=== PATIENT | male | born 1960 | race Caucasian/White ===

== ENCOUNTER → 2024-02-20 | Outpatient (CLI) | payer OTHER ==
--- NOTE | 2024-02-20 08:35 | CTL ---
EXAMINATION TYPE: CT Low Dose Lung DATE OF EXAM: 02/20/2024 8:03 AM CLINICAL INDICATION: Male, 63 years old with history of Z12.2 SCREENING F17.210 NICOTINE DEPENDENCE; current smoker 1.5 ppd x30+ years , history of tobacco use. COMPARISON: None. TECHNIQUE: Multiple axial non-contrast scans were obtained from approximately the lung apices through the upper abdomen. Coronal and sagittal reformatted images were obtained. Low dose technique was uti lized. CT DLP: 62.2 mGycm, Automated exposure control for dose reduction was used. CT Contrast: Contrast used: None Oral contrast used: None FINDINGS: ======== Lack of intravenous contrast and low dose technique limits the evaluation of the vascular and soft ti ssue structures. LUNGS: No evidence of pulmonary fibrosis. No evidence of focal consolidation, pneumothorax or pleural effusion. Centrilobular emphysema changes. Nodules: RUL: Apical scarring in the right lung apex without evidence for right upper lung pulmonary nodul e. RML: None. RLL: None. SALVADOR: Calcified granuloma series 5 image 15. LLL: None. AIRWAY: Patent and unremarkable. HEART: Size within normal limits. MEDIASTINUM: No gross evidence of adenopathy. VASCULATURE: No aortic aneurysm. MUSCULOSKELETAL: No acute osseous abnormalities SOFT TISSUES/LYMPH NODES: Unremarkable. LOWER NECK: No significant findings. UPPER ABDOMEN: No significant findings. IMPRESSION: 1. No clinically significant pulmonary nodules. 2. Mild emphysema. CT LUNG RAD AND CT CHEST RECOMMENDATION: Lung-Rad 2 Benign Appearance or Behavior: Continue annual sc reening with LDCT in 12 months. S Modifier (other clinically significant findings): None Recommend smoking cessation (if current smoker), or continuation of smoking cessation (if prior smoke r). Annual screening for lung cancer with low-dose computed tomography is recommended in adults ages 55 to 77 years who have a 30 pack-year smoking history and currently smoke or have quit within the pa st 15 years. Screening should be discontinued once a person has not smoked for 15 years or develops a health problem that substantially limits life expectancy or the ability or willingness to have curat eulalia lung surgery. Lung rads 2021 [email or web address] [facility], , 02/20/2024 8:33 AM
== END | disposition home or self-care (01) ==
LOC: RADCTMAIN 07:33
PROVIDERS: ATTEND Family Medicine
DX: Z12.2 Encounter for screening for malignant neoplasm of respiratory organs
CPT/HCPCS: 71271

== ENCOUNTER 2024-08-06 05:47 | Day surgery (SDC) | payer OTHER ==
[2024-08-06] MEDS ORDERED: HEPARIN SODIUM,PORCINE 10,000 UNIT in SODIUM CHLORIDE 0.9% 1,000 ML IRRIGATION PRN (05:51)
[2024-08-06] MEDS ORDERED: ALPRAZolam 0.5 MG TAB PO PRN (05:51)
[2024-08-06] MEDS ORDERED: ZOLPIDEM 5 MG TAB PO PRN (05:51)
[2024-08-06] MEDS ORDERED: ALPRAZolam 0.25 MG TAB PO PRN (05:51)
[2024-08-06] MEDS ORDERED: HEPARIN SODIUM,PORCINE (1 ML) 2,500 UNIT in SODIUM CHLORIDE 0.9% 250 ML IRRIGATION PRN (05:51)
[2024-08-06] MEDS: EMPTY BAG 1 BAG with SODIUM CHLORIDE 0.9% 1,000 ML IV SCH (06:15)
[2024-08-06 06:41] VITALS: RESP 16; TEMP 97.7
[2024-08-06] MEDS: IV FLUID CONTINUATION 1,000 ML IV ONE (06:42)
[2024-08-06 07:15] LABS: Basophils # (A) 0.1 k/uL (0-0.2); Basophils % (A) 1 %; Eosinophils # (A) 0.8 k/uL (0-0.7); Eosinophils % (A) 11 %; HCT 46.7 % (39.0-53.0); HGB 14.5 gm/dL (13.0-17.5); Hypochromasia Slight; Lymphocytes # (A) 2.8 k/uL (1.0-4.8); Lymphocytes % (A) 37 %; MCH 32.2 pg (25.0-35.0); MCHC 31.1 g/dL (31.0-37.0); MCV 103.3 fL (80.0-100.0); Macrocytosis Slight; Mean Platelet Volume 7.7; Monocytes # (A) 0.5 k/uL (0-1.0); Monocytes % (A) 7 %; Neutrophils # (A) 3.2 k/uL (1.3-7.7); Neutrophils % (A) 41 %; Platelet Count 329 k/uL (150-450); RBC 4.52 m/uL (4.30-5.90); RDW 12.9 % (11.5-15.5); WBC 7.8 k/uL (3.8-10.6)
[2024-08-06] MEDS: fentaNYL (PF) 50 MCG/ML 2 ML AMP IVP ONE ×2 (07:38→07:44)
[2024-08-06] MEDS: MIDAZOLAM 2 MG/2 ML VIAL IVP ONE ×2 (07:38→07:44)
[2024-08-06] MEDS: LIDOCAINE 1% INJ 10MG/ML (20 ML MDV) SQ ONE (07:44)
[2024-08-06] MEDS: VERAPAMIL SYRINGE (5 MG/10 ML) INTRAARTER ONE (07:45)
[2024-08-06] MEDS: IOPAMIDOL-370 100ML BTL INJ ONE (08:02)
[2024-08-06 08:18] LABS: African American GFR (CKD) >90 (>60 ml/min/1.73 sqM); Anion Gap 8 mmol/L; Blood Urea Nitrogen 9 mg/dL (9-20); Carbon Dioxide 22 mmol/L (22-30); Chloride 104 mmol/L (98-107); Glucose 93 mg/dL (74-99); Non-African American GFR(CKD) >90 (>60 ml/min/1.73 sqM); Potassium 4.5 mmol/L (3.5-5.1); Sodium 134 mmol/L (137-145)
--- NOTE | 2024-08-06 08:35 | IR ---
EXAMINATION TYPE: IR angio abdominal w runoff Intraoperative/procedural fluoroscopic services were pr ovided. CLINICAL INDICATION:Male, 63 years old with history of Bilateral leg pain, 2.4m/13.9885DAP, Rt radial Tr w 10cc of; , [facility] FINDINGS: Total fluoroscopy time is 2.4 min. DAP: 13.9885 Gycm2 uGym2 mGym2 Please see the operative/procedural note for further details. [facility], , 08/06/2024 8:32 AM
--- NOTE | 2024-08-06 10:31 | P.PCN ---
Description of Procedure: PROCEDURES PERFORMED: Abdominal angiography with bilateral runoff INDICATION: Abnormal LE ultrasound with concern of inflow disease, Brewster class 3 claudication bilaterally CONSENT:I have discussed the risks, benefits and alternative therapies for the above-mentioned procedure and for both sedation/analgesia as well as necessary blood product administration, if indicated, as they pertain to this patient. The patient has indicated understanding and acceptance of the risks and procedures discussed. PROCEDURE: After the risks, benefits and alternatives of the above mentioned procedure explained in detail with the patient, informed consent was obtained. Patient was taken to the catheterization lab and prepped and draped in usual fashion. 1% lidocaine was used to anesthetize the right radial area. A 6- Moz[place]ican sheath was placed in the right radial artery using modified Seldinger technique. A 5-Mozambican pigtail catheter was inserted to the abdominal aorta and DSA imaging was obtained. Given cotnrast thresholds more extensive imaging was not performed. Patient tolerated the diagnostic portion well. A TR band was placed with hemostasis achieved. The patient tolerated the procedure well. Patient was transported back to the post catheterization holding area in stable condition. Conscious Sedation: Patient was monitored under the direct supervision of vision of myself for conscious sedation using Versed and fentanyl for a total duration of 24 minutes Abdominal aorta: The abdominal aorta has mild calcifcation. Renal arteries appear patent. There is no significant dissection or aneurysm. There appears to be a 90% calcified plaque at the distal descending aorta before illiac bifurcation Right lower extremity: Right common iliac artery: There is 100% stenosis. Right external iliac artery: There is diffuse 40-50% stenosis. Right internal iliac artery: There is 100% stenosis. Right common femoral artery: There is some toruosity and at least 50% right common femoral artery stenosis. Cannot exclude more significant right common femoral disease with collaterals. Right profunda: There is no significant stenosis. Right SFA: There is no significant stenosis. Right popliteal artery: There is no significant stenosis. Right tibioperoneal trunk: There is no significant stenosis. Right anterior tibial artery: There is no significant stenosis. Right posterior tibial artery: There is no significant stenosis. Right peroneal artery: There is no significant stenosis. Left lower extremity: Left common iliac artery: There appears to be tandem 90% and 90% left common illiac stenoses. Left external iliac artery: There is no significant stenosis. Left internal iliac artery: There is no significant stenosis. Left common femoral artery: There is left common femoral artery 100% stenosis. Left profunda: There is no significant stenosis. Left SFA: There is no significant stenosis. Left popliteal artery: There is no significant stenosis. Left tibioperoneal trunk: There is no significant stenosis. Left anterior tibial artery: There is no significant stenosis. Left posterior tibial artery: There is no significant stenosis. Left peroneal artery: There is no significant stenosis. FINAL IMPRESSION: 1. Peripheral arterial disease as described above including 90% distal aorto, 100% right common illiac, at least 50% stenosis of the right common femoral artery, left common illiac 90% stenosis, left common femoral artery 100% stenosis. PLAN: 1. Aggressive risk factor modification per most recent ACC/AHA guidelines. 2. Anatomy not amenable to percutaneous approach and we will refer to vascular surgery. If warranted consider CTA to further assess extent of right common femoral, left common illiac, distal aortic disease.
[2024-08-06 13:07] VITALS: BP 122/75; PULSE 72
== END 2024-08-06 11:30 | disposition home or self-care (01) ==
LOC: CATHCVL 05:47
PROVIDERS: ATTEND Internal Medicine
DX: I70.201 Unspecified atherosclerosis of native arteries of extremities, right leg (principal); I25.10 Atherosclerotic heart disease of native coronary artery without angina pectoris; Z79.899 Other long term (current) drug therapy
CPT/HCPCS: 99152; 99153; 36200; 75625; 75716; 80048; 85025; J2250; J2003; J3010; Q9967

== ENCOUNTER → 2024-09-23 | Day surgery (SDC) | payer OTHER ==
[2024-09-23 13:34] VITALS: BP 154/71; PULSE 65; RESP 16; TEMP 97.6
[2024-09-23 13:36] LABS: African American GFR (CKD) >90 (>60 ml/min/1.73 sqM); Anion Gap 7 mmol/L; Blood Urea Nitrogen 12 mg/dL (9-20); Calcium 9.5 mg/dL (8.4-10.2); Carbon Dioxide 25 mmol/L (22-30); Chloride 102 mmol/L (98-107); Glucose 87 mg/dL (74-99); Non-African American GFR(CKD) >90 (>60 ml/min/1.73 sqM); Potassium 4.6 mmol/L (3.5-5.1); Sodium 134 mmol/L (137-145)
--- NOTE | 2024-09-23 14:55 | CT ---
CTA abdomen and pelvis. HISTORY: Lung cancer and pain in the right upper arm. COMPARISON: None. TECHNIQUE: Multiple axial images are obtained through the abdomen and pelvis before and after IV cont rast. The exam was performed according to the department CTA protocol. FINDINGS: Visualized lung bases are clear. On the precontrast images, there is marked atherosclerotic calcification of the abdominal aorta and i liac arteries. The post contrast images reveal no aneurysm. There is a moderate to severe stenosis of the origin of the superior mesenteric artery. There is a severe greater than 50% stenosis of the mid infrarenal portion of the abdominal aorta at a pproximately the L3-4 level. There is severe stenosis at the aortic bifurcation and in the bilateral common iliac arteries. There is no retroperitoneal adenopathy. The gallbladder is normal. There is no focal mass or organomegaly involving the liver, pancreas, sple en or adrenal glands. There is no solid renal mass or hydronephrosis. The bowel loops are normal in caliber. No free intraperitoneal air or fluid. No pelvic mass, free fluid, abscess or adenopathy. Visualized osseous structures are intact. IMPRESSION: Moderate to severe stenoses of the infrarenal abdominal aorta and of the common iliac arteries. No an eurysm. Marked atheromatous calcifications of the abdominal aorta and iliac arteries. [facility], , 09/23/2024 2:53 PM
== END ==
LOC: RADCTMAIN 09-09 12:31 → CATHCVL 12:27 → EDSTATUS 13:00
PROVIDERS: ATTEND Surgery
DX: I70.221 Atherosclerosis of native arteries of extremities with rest pain, right leg (principal); I70.0 Atherosclerosis of aorta; F17.210 Nicotine dependence, cigarettes, uncomplicated
CPT/HCPCS: 36246; 36410; 76937; 80048; 74174; Q9967